=== PATIENT | female | born 2000 | race Caucasian/White ===

== ENCOUNTER 2021-09-26 10:05 | Observation (INO) ==
[~2021-09-26 10:05] MED LIST: Buffered Lidocaine 1% SYRIN 1 ml INTRADERM ONE; Lactated Ringers 1000 ml BAG 1,000 ML IV SCH; Lidocaine 2% PF 5 ML VIAL ONE; Midazolam 2 mg/2 ml VIAL 1 mg/ml 2 ml VIAL (2 mg) ONE; Naloxone 0.4 mg VIAL 0.4 mg/ml 1 ml VIAL IV PRN; Ondansetron 4 mg VIAL 2 MG/ML 2 ml VIAL IV PRN; Propofol 10 MG/ML 20 ML BTL ONE; fentaNYL 100 mcg/2 ml 50 MCG/ML VIAL ONE
[2021-09-26] MEDS ORDERED: ceFAZolin 2 GM in NS PREMIX 2 GM/100 ML BAG IVPB ONE (10:25)
[2021-09-26] MEDS ORDERED: Rocuronium 50 mg VIAL 10 mg/ml 5 ml VIAL (50 mg) ONE ×2 (12:57→12:58)
[2021-09-26] MEDS ORDERED: fentaNYL 100 mcg/2 ml 50 MCG/ML VIAL ONE (14:03)
[2021-09-26] MEDS ORDERED: Ondansetron 4 mg VIAL 2 MG/ML 2 ml VIAL ONE (14:03)
[2021-09-26] MEDS ORDERED: Etomidate 20 mg/10 ml 2 MG/ML 10 ml VIAL ONE (17:31)
[2021-09-26] MEDS: Ondansetron 4 mg VIAL 2 MG/ML 2 ml VIAL IV PRN (18:06)
[2021-09-26] MEDS: HYDROmorphone 1 MG/1 ML SYRINGE IV SLOW PU PRN (18:06)
[2021-09-26 19:56] LABS: ABS Eosinophils 0.4 10^3/ul (0-0.6); ABS Lymphocytes 1.5 10^3/ul (1.0-4.8); ABS Monocytes 0.9 10^3/ul (0-0.8); ABS Neutrophils 4.9 10^3/ul (1.5-7.7); Eosinophil % 5.2 %; Hematocrit 33 % (35-47); Hemoglobin 10.8 g/dL (12.0-16.0); Lymphocyte % 19.8 %; Mean Corpuscular HGB Conc 33 g/dL (31-36); Mean Corpuscular Hemoglobin 26 pg (27-31); Mean Corpuscular Volume 79 fL (80-97); Mean Platelet Volume 7.8 fL (7.4-10.4); Platelet Count 352 10^3/uL (150-450); Red Blood Count 4.16 10^6 /uL (3.70-4.87); Red Cell Distribution Width 14 % (10-15); White Blood Count 7.8 10^3/uL (3.5-10.8)
[2021-09-26 20:48] LABS: Albumin 3.5 g/dL (3.2-5.2); Albumin/Globulin Ratio 1.3 (1-3); Calcium 8.8 mg/dL (8.6-10.3); Globulin 2.8 g/dL (2-4); Potassium 3.9 mmol/L (3.5-5.0); Total Bilirubin 0.7 mg/dL (0.2-1.0); Total Protein 6.3 g/dL (6.4-8.9); eGFR CKD-EPI 125.8 (>60)
[2021-09-26] MEDS ORDERED: Lactated Ringers 1000 ml BAG 1,000 ML IV SCH (23:59)
[2021-09-27] MEDS: HYDROmorphone 1 MG/1 ML SYRINGE IV SLOW PU PRN ×3 (03:21→23:41)
[2021-09-27] MEDS: Ondansetron 4 mg VIAL 2 MG/ML 2 ml VIAL IV PRN ×2 (09:16→23:38)
[2021-09-27] MEDS ORDERED: ceFAZolin 2 GM PREMIX 2 GM/50 ML BAG ONE (14:05)
[2021-09-27] MEDS ORDERED: fentaNYL 100 mcg/2 ml 50 MCG/ML VIAL ONE ×3 (14:42→18:30)
[2021-09-27] MEDS ORDERED: Midazolam 2 mg/2 ml VIAL 1 mg/ml 2 ml VIAL (2 mg) ONE (14:42)
[2021-09-27] MEDS ORDERED: Lidocaine 2% PF 5 ML VIAL ONE ×2 (14:42→14:46)
[2021-09-27] MEDS ORDERED: Propofol 10 MG/ML 20 ML BTL ONE (14:46)
[2021-09-27] MEDS ORDERED: Rocuronium 50 mg VIAL 10 mg/ml 5 ml VIAL (50 mg) ONE ×2 (14:56→17:21)
[2021-09-27] MEDS ORDERED: Bupivacaine 0.25% SDV 30 ML ONE (15:30)
[2021-09-27] MEDS ORDERED: Dexamethasone IV 4 MG/ML VIAL 1 ml VIAL ONE (16:18)
[2021-09-27] MEDS ORDERED: Ondansetron 4 mg VIAL 2 MG/ML 2 ml VIAL ONE (16:18)
[2021-09-27] MEDS: fentaNYL 100 mcg/2 ml 50 MCG/ML VIAL IV PRN ×2 (18:33→18:49)
[2021-09-27] MEDS ORDERED: ZOSYN 3.375 GM x ONE DOSE over 30 miuntes IV (20:00)
[2021-09-27] MEDS ORDERED: LACTATED RINGERS 1000 ML BAG IV SCH (21:00)
[2021-09-28] MEDS: Piperacillin/Tazobac ADVAN 3.375 GM in NS 0.9% 100 ml BAG 100 ML IV SCH ×2 (02:16→07:48)
[2021-09-28] MEDS: HYDROmorphone 1 MG/1 ML SYRINGE IV SLOW PU PRN ×2 (03:33→07:48)
[2021-09-28] MEDS: Ondansetron 4 mg VIAL 2 MG/ML 2 ml VIAL IV PRN (07:54)
[2021-09-28] MEDS ORDERED: oxyCODONE/Acetamin 5/325 mg TAB PO PRN (08:16)
[2021-09-28 08:26] VITALS: BP 129/85
== END 2021-09-28 10:41 | disposition home or self-care (01) ==
LOC: AA 10:05 → OR 10:05 → SSU 17:25
PROVIDERS: ADMIT Surgery Surgical Critical Care; ATTEND Surgery Surgical Critical Care